=== PATIENT | female | born 1950 | race Caucasian/White ===

== ENCOUNTER 2022-08-26 05:13 | Inpatient (IN) | payer MEDICARE, MEDICAID ==
[~2022-08-26] VITALS: Ht 162.6 cm; Wt 88.2 kg
[2022-08-26 05:55] LABS: BASOPHILS % 0.5 % (0.0-2.0); EOSINOPHILS % 0.5 % (0.0-5.0); HEMATOCRIT. 38.9 % (36.0-48.0); LYMPHOCYTES % 14.8 % (20.0-50.0); MEAN CORPUSCULAR HEMOGLOBIN 28.2 pg (28.0-32.0); MEAN CORPUSCULAR VOLUME 84.5 fL (81.0-99.0); MEAN PLATELET VOLUME 7.8 fl (7.4-10.4); MONOCYTES % 4.8 % (2.0-8.0); NEUTROPHILS % 79.4 % (40.0-76.0); PLATELET 259 x1000/uL (130-400); RED BLOOD CELL COUNT 4.61 mill/uL (4.2-5.4); RED CELL DISTRIBUTION WIDTH 14.6 % (11.6-14.6)
[2022-08-26 06:04] LABS: CHLORIDE 100 mEq/L (98-107)
[2022-08-26] MEDS ORDERED: MORPHINE SULFATE 4 MG/ML CPJ (NOT FOR IM USE) IV STA (06:12)
[2022-08-26] MEDS ORDERED: ONDANSETRON HCL 4MG/2ML INJ IV STA (06:12)
[2022-08-26 06:13] LABS: PROTHROMBIN TIME 10.4 sec (9.6-11.0)
[2022-08-26] MEDS ORDERED: SODIUM CHLORIDE 0.9% 1,000 ML IV ONE (07:00)
[2022-08-26 07:57] LABS: CLARITY URINE TURBID (CLEAR); COLOR URINE YELLOW (YELLOW); KETONES URINE 1+ (NEGATIVE); LEUKOCYTE ESTERASE URINE NEGATIVE (NEGATIVE); NITRITE URINE NEGATIVE (NEGATIVE); OCCULT BLOOD URINE NEGATIVE (NEGATIVE); PROTEIN URINE TRACE (NEGATIVE); SPECIFIC GRAVITY URINE 1.023 (1.005-1.030); UROBILINOGEN URINE 0.2 E.U./dL (0.2-1.0)
[2022-08-26 09:00] VITALS: BP 137/69
[2022-08-26] MEDS ORDERED: HYDRALAZINE 20MG/ML VIAL IV PRN (11:00)
[2022-08-26] MEDS ORDERED: KETOROLAC 15MG/ML VIAL IV PRN (11:00)
[2022-08-26] MEDS ORDERED: ONDANSETRON HCL 4MG/2ML INJ IV PRN (11:00)
[2022-08-26] MEDS ORDERED: IPRATROPIUM/ALBUTEROL 0.5-3(2.5)MG/3ML NEB HHN PRN (11:00)
[2022-08-26] MEDS ORDERED: OLME40TA18 PO (11:25)
[2022-08-26] MEDS ORDERED: SPIR25TA6 PO (11:26)
[2022-08-26 11:37] LABS: PHOSPHORUS 2.5 mg/dL (2.5-4.9)
[2022-08-26] MEDS: ENOXAPARIN 40MG/0.4ML SYR SUBCUT SCH (12:38)
[2022-08-26] MEDS: PANTOPRAZOLE SODIUM 40 MG/VIAL IV SCH (12:38)
[2022-08-26] MEDS: DEXT 5%/0.45% NACL 1000ML 1,000 ML IV SCH (12:48)
[2022-08-26] MEDS: SPIRONOLACTONE 25MG TABLET PO SCH (13:58)
[2022-08-26] MEDS: LOSARTAN POTASSIUM 25 MG TABLET PO SCH (13:58)
[2022-08-26] MEDS ORDERED: POTASSIUM CHLORIDE INJ 40 MEQ in DEXT 5% WATER 250 ML IV SCH (15:00)
[2022-08-26 20:00] VITALS: BP 124/58
[2022-08-27] VITALS: BP 109/48
[2022-08-27 04:00] VITALS: BP 107/48
[2022-08-27] MEDS: DEXT 5%/0.45% NACL 1000ML 1,000 ML IV SCH ×2 (05:09→15:21)
[2022-08-27 07:33] LABS: BASOPHILS % 0.5 % (0.0-2.0); EOSINOPHILS % 3.5 % (0.0-5.0); HEMATOCRIT. 36.6 % (36.0-48.0); MEAN CORPUSCULAR HEMOGLOBIN 28.4 pg (28.0-32.0); MEAN CORPUSCULAR VOLUME 86.8 fL (81.0-99.0); MEAN PLATELET VOLUME 7.9 fl (7.4-10.4); PLATELET 231 x1000/uL (130-400); RED BLOOD CELL COUNT 4.22 mill/uL (4.2-5.4); RED CELL DISTRIBUTION WIDTH 14.6 % (11.6-14.6)
[2022-08-27 07:55] LABS: CHLORIDE 108 mEq/L (98-107)
[2022-08-27 08:00] VITALS: BP 135/81
[2022-08-27 08:03] LABS: HDL CHOLESTEROL 35 mg/dL (40-59); LDL CHOLESTEROL 83 mg/dL (5-100)
[2022-08-27 08:19] LABS: T4 FREE 0.87 ng/dL (0.76-1.46)
[2022-08-27] MEDS: PANTOPRAZOLE SODIUM 40 MG/VIAL IV SCH (08:47)
[2022-08-27] MEDS: SPIRONOLACTONE 25MG TABLET PO SCH (08:53)
[2022-08-27] MEDS: LOSARTAN POTASSIUM 25 MG TABLET PO SCH (08:54)
[2022-08-27] MEDS: ENOXAPARIN 40MG/0.4ML SYR SUBCUT SCH (11:45)
[2022-08-27 12:00] VITALS: BP 117/54
[2022-08-27 16:00] VITALS: BP 126/65
[2022-08-27 20:00] VITALS: BP 142/75
[2022-08-28] VITALS: BP 141/72
[2022-08-28 04:00] VITALS: BP 127/86
[2022-08-28] MEDS: DEXT 5%/0.45% NACL 1000ML 1,000 ML IV SCH (07:16)
[2022-08-28] MEDS: PANTOPRAZOLE SODIUM 40 MG/VIAL IV SCH (08:20)
[2022-08-28] MEDS: LOSARTAN POTASSIUM 25 MG TABLET PO SCH (08:20)
[2022-08-28] MEDS: SPIRONOLACTONE 25MG TABLET PO SCH (08:25)
[2022-08-28 08:26] LABS: BASOPHILS % 0.5 % (0.0-2.0); EOSINOPHILS % 2.7 % (0.0-5.0); HEMATOCRIT. 36.9 % (36.0-48.0); HEMOGLOBIN. 11.8 g/dL (12.0-16.0); LYMPHOCYTES % 26.2 % (20.0-50.0); MEAN CORPUSCULAR VOLUME 87.1 fL (81.0-99.0); MEAN PLATELET VOLUME 8.2 fl (7.4-10.4); MONOCYTES % 8.2 % (2.0-8.0); NEUTROPHILS % 62.4 % (40.0-76.0); PLATELET 230 x1000/uL (130-400); RED BLOOD CELL COUNT 4.23 mill/uL (4.2-5.4); RED CELL DISTRIBUTION WIDTH 14.3 % (11.6-14.6)
[2022-08-28 08:38] LABS: CHLORIDE 106 mEq/L (98-107)
[2022-08-28] MEDS: ENOXAPARIN 40MG/0.4ML SYR SUBCUT SCH (10:18)
[2022-08-28 11:06] VITALS: BP 143/82
[2022-08-28 11:09] VITALS: BP 143/82
== END 2022-08-28 11:56 | disposition home or self-care (01) | DRG 389 ==
LOC: ER 05:13 → 7EST 07:49 → EDBEDREQ 07:51 → EDBEDREQSVC 07:51 → EDBEDREQTM 07:51
PROVIDERS: ADMIT Hospitalist; ATTEND Hospitalist
DX: K56.600 Partial intestinal obstruction, unspecified as to cause (principal); E44.1 Mild protein-calorie malnutrition; I50.32 Chronic diastolic (congestive) heart failure; E87.6 Hypokalemia; R73.9 Hyperglycemia, unspecified; D72.829 Elevated white blood cell count, unspecified; I11.0 Hypertensive heart disease with heart failure; I25.10 Atherosclerotic heart disease of native coronary artery without angina pectoris; R73.03 Prediabetes; Z68.33 Body mass index [BMI] 33.0-33.9, adult; Z79.899 Other long term (current) drug therapy; Z98.891 History of uterine scar from previous surgery
CPT/HCPCS: 36415; 74018; 74176; 80048; 80053; 80061; 81003; 83036; 83735; 83880; 84100; 84439; 84443; 85025; 93005; 93306; 99285; C1893; C9113; J1650; J1885; J2270; J2405; J3480; J7030; J7060

== ENCOUNTER 2022-11-21 13:41 | Emergency (ER) | payer MEDICARE, MEDICAID ==
[~2022-11-21] VITALS: Ht 162.6 cm; Wt 86.0 kg
[~2022-11-21 13:41] MED LIST: OLME40TA18 PO; SPIR25TA6 PO
[2022-11-21] MEDS ORDERED: ONDANSETRON HCL 4MG/2ML INJ IV STA (14:21)
[2022-11-21 14:30] VITALS: BP 113/66
[2022-11-21] MEDS ORDERED: MECLIZINE 25MG TABLET PO ONE (14:30)
[2022-11-21] MEDS ORDERED: SODIUM CHLORIDE 0.9% 1,000 ML IV ONE (14:30)
[2022-11-21 15:41] LABS: HEMATOCRIT. 36.8 % (36.0-48.0); HEMOGLOBIN. 12.5 g/dL (12.0-16.0); MEAN CORPUSCULAR HEMOGLOBIN 27.9 pg (28.0-32.0); MEAN PLATELET VOLUME 7.8 fl (7.4-10.4); PLATELET 240 x1000/uL (130-400); RED BLOOD CELL COUNT 4.49 mill/uL (4.2-5.4); RED CELL DISTRIBUTION WIDTH 14.7 % (11.6-14.6)
[2022-11-21 15:47] LABS: CHLORIDE 93 mEq/L (98-107)
[2022-11-21 15:48] LABS: INR 0.9; PROTHROMBIN TIME 10.1 sec (9.6-11.0)
[2022-11-21 16:06] LABS: CLARITY URINE CLEAR (CLEAR); COLOR URINE YELLOW (YELLOW); KETONES URINE TRACE (NEGATIVE); LEUKOCYTE ESTERASE URINE NEGATIVE (NEGATIVE); NITRITE URINE NEGATIVE (NEGATIVE); OCCULT BLOOD URINE NEGATIVE (NEGATIVE); PH URINE 7.5 (4.5-8.0); PROTEIN URINE NEGATIVE (NEGATIVE); SPECIFIC GRAVITY URINE 1.019 (1.005-1.030)
[2022-11-21] MEDS ORDERED: MECL-159 MT (17:36)
[2022-11-21] MEDS ORDERED: ONDA4TAB11 PO (17:36)
[2022-11-21 17:46] LABS: PLATELET ESTIMATE NORMAL
== END 2022-11-21 17:59 | disposition home or self-care (01) ==
LOC: ER 13:46
DX: R53.1 Weakness (principal); R42 Dizziness and giddiness; R11.0 Nausea; E86.0 Dehydration; E11.9 Type 2 diabetes mellitus without complications; I10 Essential (primary) hypertension; Z20.822 Contact with and (suspected) exposure to COVID-19
CPT/HCPCS: 36415; 70450; 71045; 80053; 81003; 83690; 83880; 84484; 85025; 85610; 87426; 93005; 96361; 96374; 99285; C9803; J2405; J7030; J8597

== ENCOUNTER 2022-11-29 17:39 | Emergency (ER) | payer MEDICARE, MEDICAID ==
[~2022-11-29] VITALS: Ht 157.5 cm; Wt 77.0 kg
[~2022-11-29 17:39] MED LIST changes: +MECL-159 MT; +ONDA4TAB11 PO
[2022-11-29 17:54] VITALS: BP 134/58
[2022-11-29 19:08] LABS: BASOPHILS % 0.3 % (0.0-2.0); EOSINOPHILS % 0.6 % (0.0-5.0); HEMATOCRIT. 33.6 % (36.0-48.0); HEMOGLOBIN. 11.9 g/dL (12.0-16.0); LYMPHOCYTES % 27.4 % (20.0-50.0); MEAN CORPUSCULAR HEMOGLOBIN 29.9 pg (28.0-32.0); MEAN CORPUSCULAR VOLUME 84.3 fL (81.0-99.0); MEAN PLATELET VOLUME 7.2 fl (7.4-10.4); MONOCYTES % 10.4 % (2.0-8.0); NEUTROPHILS % 61.3 % (40.0-76.0); PLATELET 365 x1000/uL (130-400); RED BLOOD CELL COUNT 3.99 mill/uL (4.2-5.4); RED CELL DISTRIBUTION WIDTH 14.1 % (11.6-14.6)
[2022-11-29 19:09] LABS: CHLORIDE 92 mEq/L (98-107)
[2022-11-29 19:10] LABS: PROTHROMBIN TIME 10.5 sec (9.6-11.0)
[2022-11-29] MEDS ORDERED: SODIUM CHLORIDE 0.9% 1,000 ML IV ONE (21:00)
[2022-11-29] MEDS ORDERED: SODIUM POLYSTYRENE SULFONATE 15 G/60 ML BOT PO ONE (21:00)
[2022-11-29] MEDS ORDERED: LACTULOSE 20G/30ML UDC PO ONE (21:00)
== END 2022-11-29 22:07 | disposition home or self-care (01) ==
LOC: ER 17:39 → CANBEDREQ 12-01 21:04
DX: R10.33 Periumbilical pain (principal); K59.00 Constipation, unspecified; E87.1 Hypo-osmolality and hyponatremia
CPT/HCPCS: 36415; 74176; 80053; 83690; 85025; 85610; 93005; 99285; J7030